=== PATIENT | female | born 1995 | race Caucasian/White ===

== ENCOUNTER 2018-05-23 10:36 | Emergency (ER) | payer OTHER ==
[2018-05-23] MEDS ORDERED: NS 0.9% 1000 ML* 1,000 ML IV ONE (10:49)
[2018-05-23] MEDS ORDERED: Lactated Ringers 1000 ml Bag*IV.FLUID IV ONE (10:57)
[2018-05-23] MEDS ORDERED: Dexamethasone IV* 4 MG/ML 1 ML (4 MG) IV SLOW PU ONE (10:59)
[2018-05-23] MEDS ORDERED: Ketorolac INJ* 30 MG/ML 1 ML VIAL IV PUSH ONE (10:59)
[2018-05-23] MEDS ORDERED: Clindamycin 600 MG IVPREMIX(* 600 MG/50 ML SDV IV ONE (11:00)
--- NOTE | 2018-05-23 11:09 | ED ---
Influenza-Like Illness - HPI Summary HPI Summary: Patient is a 22-year-old female presenting to the ED with 2 day history of flulike symptoms. She is endorsing fevers, sweats, chills, throat pain and a mild cough. Denies any headache, photophobia or neck pain. She took ibuprofen at home one time but states she did not want to take any further due to having intermittent high blood pressure at times. She said she is otherwise healthy and takes no medications at home. She denies any known sick contacts. She is eating and drinking, although this is been decreased. Temperature highest at 102.4. On arrival she is 101.3. She states she feels her heart racing and she is unable to sleep. She states she had a flu shot approximately one month prior. - History of Current Complaint Chief Complaint: EDFluSymptoms Time Seen by Provider: 05/23/18 10:40 Hx Obtained From: Patient Onset/Duration: Gradual Onset Severity: Moderate Associated Signs & Symptoms: Fever, T Max, F/C, Myalgia, Cough, Sore Throat, Nasal Congestion - Risk Factors Influenza Risk Factors: Negative - Allergy/Home Medications Allergies/Adverse Reactions: Allergies Allergy/AdvReac Type Severity Reaction Status Date / Time No Known Drug Allergies Allergy Nothing Verified 05/23/18 11:41 PMH/Surg Hx/FS Hx/Imm Hx Previously Healthy: Yes - Immunization History Hx Pertussis Vaccination: No Immunizations Up to Date: Yes Infectious Disease History: No Infectious Disease History: Denies: Traveled Outside the [place] in Last 30 Days - Social History Occupation: Unemployed, Student Lives: With Family Alcohol Use: Occasionally Alcohol Amount: 6 Hx Substance Use: No Substance Use Type: Reports: None Hx Tobacco Use: No Smoking Status (MU): Never Smoked Tobacco Review of Systems Positive: Fever, Chills, Fatigue, Skin Diaphoresis Negative: Photophobia, Blurred Vision, Diplopia, Drainage, Erythema Positive: Sore Throat. Negative: Epistaxis, Dental Pain, Ear Ache, Nasal Discharge Negative: Palpitations, Chest Pain Positive: Cough. Negative: Shortness Of Breath Genitourinary: Negative Positive: no symptoms reported, see HPI Negative: Arthralgia, Myalgia Skin: Negative All Other Systems Reviewed And Are Negative: Yes Physical Exam Triage Information Reviewed: Yes Vital Signs On Initial Exam: Initial Vitals Temp Pulse Resp BP Pulse Ox 100.7 F 162 20 142/79 95 05/23/18 10:40 05/23/18 10:40 05/23/18 10:40 05/23/18 10:40 05/23/18 10:40 Vital Signs Reviewed: Yes Appearance: Positive: Ill-Appearing Skin: Positive: Diaphoretic Eyes: Positive: EOMI, STACIE ENT: Positive: Hearing grossly normal, Pharyngeal erythema, TMs normal, Tonsillar swelling, Tonsillar exudate, Uvula midline. Negative: Pharynx normal , Nasal congestion, Nasal drainage, Trismus, Dental tenderness, Sinus tenderness Neck: Positive: Supple, Enlarged Nodes @ - Cervical LAD Respiratory/Lung Sounds: Positive: Clear to Auscultation, Breath Sounds Present Cardiovascular: Positive: Pulses are Symmetrical in both Upper and Lower Extremities, Tachycardia. Negative: Leg Edema Left, Leg Edema Right Musculoskeletal: Positive: Normal, Strength/ROM Intact Neurological: Positive: Sensory/Motor Intact, Alert, Oriented to Person Place, Time, Speech Normal Psychiatric: Positive: Normal, Affect/Mood Appropriate AVPU Assessment: Alert Diagnostics - Vital Signs Vital Signs Temp Pulse Resp BP Pulse Ox 05/23/18 10:40 100.7 F 162 20 142/79 95 - Laboratory Result Diagrams: 05/23/18 11:29 05/23/18 11:29 Lab Statement: Any lab studies that have been ordered have been reviewed, and results considered in the medical decision making process. Flu Symptom Course/Dx - Course Course Of Treatment: During the course of treatment, the patient's evaluated for throat pain with fevers, sweats, chills. Septic protocol initiated based on 165 heart rate, 100.7 fever and only slightly tachypnic at 21. Septic protocol initiated includes 1700 lactated Ringers, clindamycin 600 mg IV, Toradol 30 mg IV and Decadron 10 mg IV. Strep swab obtained. Labs obtained as well as blood cultures which are pending. On physical exam, patient is pleasant , alert, however slightly uncomfortable. Soft and dry skin, dry mucosa, dentition without lesions. PERRLA, EOMI, conjunctiva pink without redness or exudates. Neck full range of motion, palpable thyroid, trachea at midline bilateral cervical lymphadenopathy. Pharyngeal erythema with bilateral tonsillar exudates with enlarged tonsils. No evidence of peritonsillar abscess. Regular rhythm, tachycardic at 165. Normal S1 and single S2. Flexion and extension of the neck without limitations, ROM WNL in all extremities. Pulses +2 intact bilaterally. Strep swab negative. Flu swab negative. Chest x-ray negative. Labs are unremarkable. Patient appears much improved after medications are given. She will be discharged at this time with pharyngitis and tonsillitis diagnosis. Prednisone 50 mg once daily in the morning, clindamycin 4 times daily 5 days are prescribed. Encouraged ibuprofen. Note given for school 2 days. - Diagnoses Differential Diagnosis/HQI/PQRI: Positive: Influenza, Upper Respiratory Infection, Other - Strep Provider Diagnoses: Tonsillitis, Pharyngitis Discharge - Sign-Out/Discharge Documenting (check all that apply): Patient Departure - Discharge Plan Condition: Stable Disposition: HOME Prescriptions: Clindamycin Cap(NF) [Clindamycin Cap 300 mg Cap(NF)] 300 mg PO QID #20 cap predniSONE TAB* [Deltasone TAB*] 50 mg PO DAILY #5 tab MDD 1 Patient Education Materials: Pharyngitis (ED), Tonsillitis (ED) Forms: *School Release Referrals: [facility] - Eduin CARDOZA [Primary Care Provider] - Additional Instructions: Drink plenty of fluids - at least twice to three times what you would normally drink Prednisone once daily in the morning x 5 days Clindamycin four times daily x 5 days Please follow up with Eduin Do not cook for anyone x 3-4 days Wash hands frequently Ibuprofen 600mg three times daily x 3 days for discomfort/swelling Out of school x 2 days - Billing Disposition and Condition Condition: STABLE Disposition: Home
[2018-05-23 11:41] LABS: ABS Basophils 0 10^3/ul (0-0.2); ABS Eosinophils 0 10^3/ul (0-0.6); ABS Lymphocytes 0.6 10^3/ul (1.0-4.8); ABS Monocytes 1.1 10^3/ul (0-0.8); ABS Neutrophils 8.9 10^3/ul (1.5-7.7); ABS Nucleated RBC 0 10^3/ul; Eosinophil % 0 %; Hematocrit 36 % (35-47); Hemoglobin 12.3 g/dl (12.0-16.0); Lymphocyte % 6.1 %; Mean Corpuscular HGB Conc 34 g/dl (31-36); Mean Corpuscular Hemoglobin 29 pg (27-31); Mean Corpuscular Volume 84 fL (80-97); Mean Platelet Volume 7.8 fL (7.4-10.4); Nucleated Red Blood Cells % 0; Platelet Count 206 10^3/ul (150-450); Red Blood Count 4.28 10^6/ul (4.00-5.40); Red Cell Distribution Width 13 % (10.5-15); White Blood Count 10.6 10^3/ul (3.5-10.8)
[2018-05-23 12:04] LABS: EGFR Non-African American 115.1 (>60)
[2018-05-23 13:06] LABS: Urine Appearance Clear; Urine Blood 1+ (Negative); Urine Color Straw; Urine Ketones 1+ (Negative); Urine Protein Negative (Negative); Urine Red Blood Cell Trace(0-2/hpf) (Absent); Urine Specific Gravity 1.004 (1.010-1.030); Urine Urobilinogen Negative (Negative); Urine White Blood Cell Trace(0-5/hpf) (Absent)
[2018-05-23 13:41] VITALS: BP 137/87
--- NOTE | 2018-05-25 06:55 | ED ---
Progress - Progress Note Progress Note: Final urine culture reveals no growth of clinical significance. Patient was given clindamycin for tonsillitis. No change in treatment at this time. Course/Dx - Course Course Of Treatment: During the course of treatment, the patient's evaluated for throat pain with fevers, sweats, chills. Septic protocol initiated based on 165 heart rate, 100.7 fever and only slightly tachypnic at 21. Septic protocol initiated includes 1700 lactated Ringers, clindamycin 600 mg IV, Toradol 30 mg IV and Decadron 10 mg IV. Strep swab obtained. Labs obtained as well as blood cultures which are pending. On physical exam, patient is pleasant , alert, however slightly uncomfortable. Soft and dry skin, dry mucosa, dentition without lesions. PERRLA, EOMI, conjunctiva pink without redness or exudates. Neck full range of motion, palpable thyroid, trachea at midline bilateral cervical lymphadenopathy. Pharyngeal erythema with bilateral tonsillar exudates with enlarged tonsils. No evidence of peritonsillar abscess. Regular rhythm, tachycardic at 165. Normal S1 and single S2. Flexion and extension of the neck without limitations, ROM WNL in all extremities. Pulses +2 intact bilaterally. Strep swab negative. Flu swab negative. Chest x-ray negative. Labs are unremarkable. Patient appears much improved after medications are given. She will be discharged at this time with pharyngitis and tonsillitis diagnosis. Prednisone 50 mg once daily in the morning, clindamycin 4 times daily 5 days are prescribed. Encouraged ibuprofen. Note given for school 2 days. - Diagnoses Provider Diagnoses: Tonsillitis, Pharyngitis Discharge - Sign-Out/Discharge Documenting (check all that apply): Patient Departure - Discharge Plan Condition: Stable Disposition: HOME Prescriptions: Clindamycin Cap(NF) [Clindamycin Cap 300 mg Cap(NF)] 300 mg PO QID #20 cap predniSONE TAB* [Deltasone TAB*] 50 mg PO DAILY #5 tab MDD 1 Patient Education Materials: Pharyngitis (ED), Tonsillitis (ED) Forms: *School Release Referrals: [facility] - Eduin CARDOZA [Primary Care Provider] - Additional Instructions: Drink plenty of fluids - at least twice to three times what you would normally drink Prednisone once daily in the morning x 5 days Clindamycin four times daily x 5 days Please follow up with Eduin Do not cook for anyone x 3-4 days Wash hands frequently Ibuprofen 600mg three times daily x 3 days for discomfort/swelling Out of school x 2 days - Billing Disposition and Condition Condition: STABLE Disposition: Home
== END 2018-05-23 13:42 | disposition home or self-care (01) ==
LOC: ED 10:36
DX: J02.9 Acute pharyngitis, unspecified (principal); R50.9 Fever, unspecified; R05 Cough
CPT/HCPCS: 36415; 71046; 80053; 81003; 81015; 83605; 84702; 85025; 86140; 87040; 87077; 87086; 87651; 96361; 96374; 96375; 99282; J1100; J1885